=== PATIENT | male | born 1975 | race Caucasian/White ===

== ENCOUNTER 2017-11-08 11:38 | Emergency (ER) | payer OTHER ==
[~2017-11-08] VITALS: Ht 185.4 cm; Wt 127.0 kg
[~2017-11-08 11:38] MED LIST: POLYMYXIN B/TMP10 ML OPHTHALMIC
[2017-11-08] MEDS ORDERED: ULTRAM 50MG TAB50 MG PO (12:06)
[2017-11-08] MEDS ORDERED: IBUPROFEN 800800 M1 PO (12:14)
[2017-11-08] MEDS ORDERED: PENICILLIN VK500 M1 PO (12:14)
[2017-11-08 12:26] VITALS: BP 126/89
== END 2017-11-08 12:27 | disposition home or self-care (01) ==
LOC: M.ERS 11:38
DX: K04.7 Periapical abscess without sinus (principal); K02.9 Dental caries, unspecified; I10 Essential (primary) hypertension; E06.3 Autoimmune thyroiditis